=== PATIENT | female | born 1985 | race Caucasian/White ===

== ENCOUNTER 2018-12-25 23:40 | Emergency (ER) | payer BC ==
[~2018-12-25] VITALS: Ht 172.7 cm; Wt 73.9 kg
[2018-12-26] MEDS ORDERED: NEOMY/BACITR/POLYMYXIN OINT PACKET. TP ONE
[2018-12-26 00:44] LABS: BASO # 0.1 x10^3/uL (0.0-0.2); BASO % 1 % (0-3); EOS # 0.2 x10^3/uL (0.0-0.7); EOS % 2 % (0-3); HEMATOCRIT 41.5 % (36.0-47.0); LYMPH # 3.1 x10^3/uL (1.0-4.8); LYMPH % 35 % (24-48); MEAN CORPUSCULAR HEMOGLOBIN 30 pg (25-35); MEAN CORPUSCULAR HGB CONC 34 g/dL (31-37); MEAN CORPUSCULAR VOLUME 90 fL (79-100); MONO # 0.9 x10^3/uL (0.0-1.1); MONO % 10 % (0-9); NEUT # 4.6 x10^3uL (1.8-7.7); NEUT % 52 % (31-73); PLATELET COUNT 241 x10^3/uL (140-400); RED BLOOD COUNT 4.59 x10^6/uL (3.50-5.40); RED CELL DISTRIBUTION WIDTH 13.8 % (11.5-14.5); WHITE BLOOD COUNT 8.9 x10^3/uL (4.0-11.0)
[2018-12-26] MEDS ORDERED: fentaNYL PF VIAL 100 MCG/2 ML VIAL IV ONE (00:45)
[2018-12-26 00:54] LABS: CALCIUM 9.4 mg/dL (8.5-10.1); CREATININE 0.8 mg/dL (0.6-1.0); GFR 83.1; POTASSIUM 3.6 mmol/L (3.5-5.1); PROTHROMBIN TIME PATIENT 13.4 SEC (11.7-14.0)
[2018-12-26 00:59] LABS: ALBUMIN 3.8 g/dL (3.4-5.0); MAGNESIUM 2.2 mg/dL (1.8-2.4); TOTAL BILIRUBIN 0.4 mg/dL (0.2-1.0); TOTAL PROTEIN 7.5 g/dL (6.4-8.2)
[2018-12-26] MEDS ORDERED: ACETAMINOPHEN 325 MG TABLET. PO ONE (01:15)
--- NOTE | 2018-12-26 01:29 | PHYS DOC ---
Past Medical History Past Medical History: Kidney Stone, UTI Additional Past Surgical Histo: RIGHT ARM. Alcohol Use: None Drug Use: None Adult General Chief Complaint Chief Complaint: ANIMAL BITE HPI HPI Patient is a 33 year old female who presents with a snakebite over her right, dorsal, metacarpophalangeal joint that occurred at 11:00p.m. The patient reports swelling and pain through out the foot shortly after the bite occurred. The snake is believed to be a copperhead based off visualization immediately after t he bite. The patient states the pain is currently 8/10. However, she denied pain medication because she doesn't want to be "loopy". She denies any decrease in sensation or motor function. The patient thinks the swelling and pain has slowly advanced from just the dorsum of the foot to include the ankle. She denies any nausea, vomiting, fever, or chills. She has no other complaints at this time. Review of Systems Review of Systems Constitutional: Denies fever or chills Eyes: Denies redness or eye pain Respiratory: Denies cough or shortness of breath Cardiovascular: Denies chest pain or palpitations GI: Denies abdominal pain, nausea, or vomiting : Denies dysuria or hematuria Musculoskeletal: right foot pain and swelling. no erythema. Integument: Denies rash or skin lesions Neurologic: Denies headache, focal weakness or sensory changes Complete systems were reviewed and found to be within normal limits, except as documented in this note. Current Medications Current Medications Current Medications Medications (Trade) Dose Ordered Sig/Roxana Start Time Stop Time Status Last Admin Dose Admin Acetaminophen (Tylenol) 650 mg 1X ONCE 12/26/18 01:15 12/26/18 01:16 DC 12/26/18 01:34 650 MG Fentanyl Citrate (Fentanyl 2ml Vial) 50 mcg 1X ONCE 12/26/18 00:45 12/26/18 01:02 DC Ketorolac Tromethamine (Toradol 15mg Vial) 15 mg 1X ONCE 12/26/18 02:00 12/26/18 02:03 DC 12/26/18 02:22 15 MG Neomycin/ Polymyxin/ Bacitracin (Triple Antibiotic Ointment) 1 pkt 1X ONCE 12/26/18 00:00 12/26/18 00:01 DC 12/26/18 01:34 1 PKT Ondansetron HCl (Zofran) 4 mg 1X ONCE 12/26/18 02:00 12/26/18 02:03 DC 12/26/18 02:20 4 MG Sodium Chloride 1,000 ml @ 1,000 mls/hr 1X ONCE 12/26/18 03:00 12/26/18 03:59 DC 12/26/18 03:28 1,000 MLS/HR Allergies Allergies Allergies Coded Allergies Type Severity Reaction Last Updated Verified No Known Drug Allergies 12/26/18 No Physical Exam Physical Exam Constitutional: Well developed, well nourished, no acute distress, non-toxic appearance Eyes: PERRL, EOMI, conjunctiva normal, no discharge Neck: Normal range of motion, no tenderness, supple Cardiovascular: Heart rate normal, regular rhythm Lungs & Thorax: Bilateral breath sounds clear to auscultation, no wheezing Abdomen: Soft, no tenderness Skin: Warm, dry, no erythema, no rash Back: No tenderness, no CVA tenderness Extremities: Right foot and ankle 2+ pitting edema. Neurologic: Alert and oriented X 3, normal motor function, normal sensory function, no focal deficits noted Psychologic: Affect normal, judgement normal, mood normal Current Patient Data Vital Signs Vital Signs Date Time Temp Pulse Resp B/P (MAP) Pulse Ox O2 Delivery O2 Flow Rate FiO2 12/26/18 05:05 80 19 106/67 (80) 99 Room Air 12/25/18 23:52 98.1 98.1 Lab Values Laboratory Tests Test 12/26/18 00:25 12/26/18 00:32 12/26/18 05:10 POC Urine HCG, Qualitative Hcg negative (Negative) White Blood Count 8.9 x10^3/uL (4.0-11.0) 13.8 x10^3/uL (4.0-11.0) H Red Blood Count 4.59 x10^6/uL (3.50-5.40) 4.33 x10^6/uL (3.50-5.40) Hemoglobin 14.0 g/dL (12.0-15.5) 13.2 g/dL (12.0-15.5) Hematocrit 41.5 % (36.0-47.0) 39.4 % (36.0-47.0) Mean Corpuscular Volume 90 fL (79-100) 91 fL (79-100) Mean Corpuscular Hemoglobin 30 pg (25-35) 30 pg (25-35) Mean Corpuscular Hemoglobin Concent 34 g/dL (31-37) 33 g/dL (31-37) Red Cell Distribution Width 13.8 % (11.5-14.5) 13.7 % (11.5-14.5) Platelet Count 241 x10^3/uL (140-400) 208 x10^3/uL (140-400) Neutrophils (%) (Auto) 52 % (31-73) 74 % (31-73) H Lymphocytes (%) (Auto) 35 % (24-48) 17 % (24-48) L Monocytes (%) (Auto) 10 % (0-9) H 8 % (0-9) Eosinophils (%) (Auto) 2 % (0-3) 1 % (0-3) Basophils (%) (Auto) 1 % (0-3) 0 % (0-3) Neutrophils # (Auto) 4.6 x10^3uL (1.8-7.7) 10.2 x10^3uL (1.8-7.7) H Lymphocytes # (Auto) 3.1 x10^3/uL (1.0-4.8) 2.3 x10^3/uL (1.0-4.8) Monocytes # (Auto) 0.9 x10^3/uL (0.0-1.1) 1.1 x10^3/uL (0.0-1.1) Eosinophils # (Auto) 0.2 x10^3/uL (0.0-0.7) 0.1 x10^3/uL (0.0-0.7) Basophils # (Auto) 0.1 x10^3/uL (0.0-0.2) 0.0 x10^3/uL (0.0-0.2) Prothrombin Time 13.4 SEC (11.7-14.0) 14.0 SEC (11.7-14.0) Prothrombin Time INR 1.1 (0.8-1.1) 1.1 (0.8-1.1) PTT 28 SEC (24-38) 29 SEC (24-38) Fibrinogen 566 mg/dL (200-440) H 443 mg/dL (200-440) H Sodium Level 141 mmol/L (136-145) Potassium Level 3.6 mmol/L (3.5-5.1) Chloride Level 104 mmol/L (98-107) Carbon Dioxide Level 30 mmol/L (21-32) Anion Gap 7 (6-14) Blood Urea Nitrogen 14 mg/dL (7-20) Creatinine 0.8 mg/dL (0.6-1.0) Estimated GFR (Cockcroft-Gault) 83.1 BUN/Creatinine Ratio 18 (6-20) Glucose Level 87 mg/dL (70-99) Calcium Level 9.4 mg/dL (8.5-10.1) Magnesium Level 2.2 mg/dL (1.8-2.4) Total Bilirubin 0.4 mg/dL (0.2-1.0) Aspartate Amino Transferase (AST) 23 U/L (15-37) Alanine Aminotransferase (ALT) 33 U/L (14-59) Alkaline Phosphatase 69 U/L (46-116) Lactate Dehydrogenase 125 U/L (81-234) Creatine Kinase 45 U/L (26-192) Total Protein 7.5 g/dL (6.4-8.2) Albumin 3.8 g/dL (3.4-5.0) Albumin/Globulin Ratio 1.0 (1.0-1.7) Laboratory Tests 12/26/18 00:32 12/26/18 05:10 Laboratory Tests 12/26/18 00:32 EKG EKG [] Radiology/Procedures Radiology/Procedures [] Course & Med Decision Making Course & Med Decision Making Ms. Rodriguez is a 33-year-old female who presents with snake bite that occurred at approximately 11 PM. Swelling and pain were confined to dorsum of the right foot and ankle. Patient denied pain medication. Per recommendations of poison control, CBC, PTT/PT, INR, and fibrinogen levels were ordered. Due to patient's stability and lack of extensive swelling and pain, crofab was deemed unnecessary and not worth the risk of potential side effects. Patient was observed over the course of 6 hours with edema checks every 30 minutes for the first 2-3 hours. Patient stable for discharge with outpatient follow-up with PCP. Discussed findings and plan with patient and family, who acknowledge understanding and agreement. Dragon Disclaimer Dragon Disclaimer This electronic medical record was generated, in whole or in part, using a voice recognition dictation system. Departure Departure Impression: Primary Impression: Snake bite Additional Impression: Edema of right foot Disposition: HOME, SELF-CARE Condition: STABLE Referrals: NO PCP (PCP) Patient Instructions: Crutch Use, [id number], Snake Bite Additional Instructions: Do not soak your wound. You may shower. Clean wound daily with soap and water. Change dressing 2 times daily. Use over the counter antibiotic ointment with each dressing change. Take over the counter Tylenol and Ibuprofen for pain or discomfort. Problem Qualifiers Primary Impression: Snake bite Encounter type: initial encounter Qualified Codes: W59.11XA - Bitten by nonvenomous snake, initial encounter LUL ALEXANDER DO Dec 26, 2018 01:29
[2018-12-26] MEDS ORDERED: KETOROLAC 15 MG/ML VIAL. IV ONE (02:00)
[2018-12-26] MEDS ORDERED: ONDANSETRON PF 4 MG/2 ML VIAL. IV ONE (02:00)
[2018-12-26] MEDS ORDERED: IV NORMAL SALINE 1000ML BAG 1,000 ML IV ONE ×2 (03:00)
[2018-12-26 05:51] LABS: BASO % 0 % (0-3); EOS # 0.1 x10^3/uL (0.0-0.7); EOS % 1 % (0-3); HEMATOCRIT 39.4 % (36.0-47.0); HEMOGLOBIN 13.2 g/dL (12.0-15.5); LYMPH # 2.3 x10^3/uL (1.0-4.8); LYMPH % 17 % (24-48); MEAN CORPUSCULAR HEMOGLOBIN 30 pg (25-35); MEAN CORPUSCULAR HGB CONC 33 g/dL (31-37); MEAN CORPUSCULAR VOLUME 91 fL (79-100); MONO # 1.1 x10^3/uL (0.0-1.1); MONO % 8 % (0-9); NEUT # 10.2 x10^3uL (1.8-7.7); NEUT % 74 % (31-73); PLATELET COUNT 208 x10^3/uL (140-400); RED BLOOD COUNT 4.33 x10^6/uL (3.50-5.40); RED CELL DISTRIBUTION WIDTH 13.7 % (11.5-14.5); WHITE BLOOD COUNT 13.8 x10^3/uL (4.0-11.0)
[2018-12-26 06:05] VITALS: BP 103/74
== END 2018-12-26 06:20 | disposition home or self-care (01) ==
LOC: ER 23:40
DX: T63.091A Toxic effect of venom of other snake, accidental (unintentional), initial encounter (principal); R60.0 Localized edema; Z87.442 Personal history of urinary calculi; Y92.89 Other specified places as the place of occurrence of the external cause
CPT/HCPCS: 36415; 80053; 81025; 82550; 83615; 83735; 85025; 85384; 85610; 85730; 96374; 96375; 99284; J1885; J2405; J7030